=== PATIENT | female | born 1960 | race American Indian/Alaskan Native ===

== ENCOUNTER 2021-06-07 20:55 | Emergency (ER) | payer BC ==
--- NOTE | 2021-06-07 22:57 | Emergency Department Report ---
- General Chief complaint: Skin Rash Stated complaint: RASH Time Seen by Provider: 06/07/21 22:42 Source: patient Mode of arrival: Ambulatory Limitations: No Limitations - History of Present Illness Initial comments: Patient is a 61-year-old F [place] female with no significant past medical history who is presenting with rash to the right side of her face. Is been present for approximately 2 days. Patient states is itchy rash. She is placed on Neosporin and hydrocortisone cream with no improvement. This is at the bottom of the right jaw going around her neck and to the anterior chest on the right. Does not cross the midline. - Related Data Previous Rx's Medication Instructions Recorded Last Taken Type Valacyclovir HCl [Valacyclovir] 1,000 mg PO TID 7 Days #21 tablet 06/07/21 Unknown Rx traMADoL [Ultram] 50 mg PO Q6HR PRN #12 tablet 06/07/21 Unknown Rx Allergies Allergy/AdvReac Type Severity Reaction Status Date / Time No Known Allergies Allergy Verified 06/07/21 22:45 Abscess Boil HPI - HPI Chief Complaint: Skin Rash Stated Complaint: RASH Time Seen by Provider: 06/07/21 22:42 Home Medications: Previous Rx's Medication Instructions Recorded Last Taken Type Valacyclovir HCl [Valacyclovir] 1,000 mg PO TID 7 Days #21 tablet 06/07/21 Unknown Rx traMADoL [Ultram] 50 mg PO Q6HR PRN #12 tablet 06/07/21 Unknown Rx Allergies/Adverse Reactions: Allergies Allergy/AdvReac Type Severity Reaction Status Date / Time No Known Allergies Allergy Verified 06/07/21 22:45 ED Review of Systems ROS: Stated complaint: RASH Other details as noted in HPI Comment: All other systems reviewed and negative ED Past Medical Hx - Past Medical History Previous Medical History?: No - Surgical History Past Surgical History?: No - Medications Home Medications: Home Medications Medication Instructions Recorded Confirmed Last Taken Type Valacyclovir HCl [Valacyclovir] 1,000 mg PO TID 7 Days #21 tablet 06/07/21 Unknown Rx traMADoL [Ultram] 50 mg PO Q6HR PRN #12 tablet 06/07/21 Unknown Rx ED Physical Exam - General Limitations: No Limitations General appearance: alert, in no apparent distress - Head Head exam: Present: atraumatic, normocephalic - Eye Eye exam: Present: normal appearance, PERRL, EOMI - ENT ENT exam: Present: mucous membranes moist - Neck Neck exam: Present: normal inspection - Respiratory Respiratory exam: Present: normal lung sounds bilaterally. Absent: respiratory distress - Cardiovascular Cardiovascular Exam: Present: regular rate, normal rhythm. Absent: systolic murmur, diastolic murmur, rubs, gallop - GI/Abdominal GI/Abdominal exam: Present: soft, normal bowel sounds - Extremities Exam Extremities exam: Present: normal inspection - Back Exam Back exam: Present: normal inspection - Neurological Exam Neurological exam: Present: alert, oriented X3 - Psychiatric Psychiatric exam: Present: normal affect, normal mood - Skin Skin exam: Present: warm, dry, intact, normal color, rash (Patient with a vesicular rash on the right mann right neck and right anterior chest. This does not go below the clavicles. Is in the C3-C4 dermatomal distribution.) ED Course Vital Signs 06/07/21 20:59 Temperature 98.0 F Pulse Rate 72 Respiratory 18 Rate Blood Pressure 140/86 O2 Sat by Pulse 97 Oximetry ED Medical Decision Making - Medical Decision Making Rash most consistent with a herpes zoster. Patient be started on medication for symptomatic relief and be discharged home. Critical care attestation.: If time is entered above; I have spent that time in minutes in the direct care of this critically ill patient, excluding procedure time. ED Disposition Clinical Impression: Disseminated zoster Disposition: HOME / SELF CARE / HOMELESS Is pt being admited?: No Does the pt Need Aspirin: No Condition: Stable Referrals: JULISSA WILSON MD [Referring] - 3-5 Days Time of Disposition: 22:54
[2021-06-07 22:59] VITALS: BP 139/94
== END 2021-06-07 23:58 | disposition home or self-care (01) ==
LOC: ED 20:55
DX: B02.7 Disseminated zoster (principal)
CPT/HCPCS: 99282